=== PATIENT | male | born 1965 | race Caucasian/White ===

== ENCOUNTER 2018-01-30 15:26 | Emergency (ER) | END 2018-01-30 19:43 | disposition home or self-care (01) ==

== ENCOUNTER 2019-05-09 11:22 | Day surgery (SDC) | payer OTHER ==
[2019-05-09] VITALS (10 sets, daily range): BP systolic 124–160; BP diastolic 91–100; PULSE 72–85; RESP 13–20; Ht 165.1 cm; Wt 68.4 kg
[~2019-05-09] VITALS: Ht 165.1 cm; Wt 68.4 kg
--- NOTE | 2019-05-09 08:41 | HPN ---
Date/Time of Note Date/Time of Note DATE: 05/09/19 TIME: 08:40 Interval H&P Admission Note Pt. seen H&P reviewed: No system changes LUTHER JOLLEY MD May 09, 2019 08:41
[~2019-05-09 11:22] MED LIST: CEFAZOLIN 2 GM/50 ML (PMX) 50 ML IVPB ONE; CIPR500T4 PO; ESOM20CA PO; HYDR-3980 PO
[2019-05-09] MEDS ORDERED: BUPIVACAINE 0.5% (SDV) 30 ML INJ ONE (12:21)
--- NOTE | 2019-05-09 12:44 | PREAC ---
Date/Time of Note Date/Time of Note DATE: 05/09/19 TIME: 12:44 Anesthesia Eval and Record Evaluation Time Pre-Procedure Interview DATE: 05/09/19 TIME: 12:44 Age 54 Sex male NPO: 8 hrs Preoperative diagnosis phimosis Planned procedure circumcision Past Medical History Past Medical History: Includes Pulm: Smoking Hx GI: GERD Surgery & Anesthesia Issues No known issue Meds Anticoagulation: No Beta Fela within 24 hr: No Reason Beta Fela not given: Pt. not on B-Fela Discontinued Reported Medications Esomeprazole Mag Trihydrate (Nexium) 20 Mg Capsule.dr, 20 MG PO DAILY, #30 CAP 01/30/18 Discontinued Scripts Hydrocodone/Acetaminophen ([place] 10-325 Tablet) 1 Each Tablet, 1 TAB PO Q6H PRN for PAIN, #12 TAB Prov:ESTRELLA MARCELINO MD 01/30/18 Ciprofloxacin Hcl* (Ciprofloxacin Hcl*) 500 Mg Tablet, 500 MG PO BID for 7 Days, TAB Prov:ESTRELLA MARCELINO MD 01/30/18 Meds reviewed: Yes Allergies Coded Allergies: No Known Allergy (Unverified , 05/09/19) Allergies Reviewed: Yes Labs/Studies Labs Reviewed: Reviewed by anesthesiologist test: N/A Studies: ECG Pre-procedure Exam Last vitals Vital Signs Date Temp Pulse Resp B/P (MAP) Pulse Ox O2 O2 Flow FiO2 Time Delivery Rate 05/09/19 98.2 85 16 124/91 99 Room Air 12:08 (102) Airway: Adequate mouth opening, Adequate thyromental dist Mallampati: Mallampati II Teeth: Abnormal Lung: Normal Heart: Normal ASA Physical Status ASA physical status: 2 Emergency: None Planned Anesthetic General/MAC: ETT Pre-operative Attestations Prior to commencing anesthesia and surgery, the patient was re-evaluated, there was verification of: *The patient's identity *The results of appropriate recent lab work and preoperative vital signs *The above evaluation not changing prior to induction *Anesthetic plan, risk benefits, alternative and complications discussed with patient/family; questions answered; patient/family understands, accepts and wishes to proceed. MISAEL FRANKLIN May 09, 2019 12:44
[2019-05-09] MEDS ORDERED: PROPOFOL 20 ML ONE (12:47)
[2019-05-09] MEDS ORDERED: SUCCINYLCHOLINE CHLORIDE 100 MG/5 ML SYG IV ONE (12:47)
[2019-05-09] MEDS ORDERED: LIDOCAINE 100 MG SYRINGE ONE (12:47)
[2019-05-09] MEDS ORDERED: CEFAZOLIN 1 GM INJ ONE (12:47)
[2019-05-09] MEDS ORDERED: ROCURONIUM 50 MG INJ ONE (12:47)
[2019-05-09] MEDS ORDERED: GLYCOPYRROLATE 0.4 MG INJ ONE (12:47)
[2019-05-09] MEDS ORDERED: METOCLOPRAMIDE 10 MG INJ ONE (12:48)
[2019-05-09] MEDS ORDERED: ONDANSETRON 4 MG INJ ONE (12:48)
[2019-05-09] MEDS ORDERED: FAMOTIDINE 20 MG INJ ONE (12:48)
[2019-05-09] MEDS ORDERED: FENTAnyl 50 MCG/ML VIAL ONE ×2 (12:48→13:36)
[2019-05-09] MEDS ORDERED: FENTAnyl 50 MCG/ML VIAL IV PRN ×3 (13:00)
[2019-05-09] MEDS ORDERED: HYDROmorphONE 1 MG/5 ML IV SYRINGE IV PRN ×3 (13:00)
[2019-05-09] MEDS ORDERED: ALBUTEROL 0.083% (NEB) 2.5 MG/3 ML AMP HHN PRN (13:00)
[2019-05-09] MEDS ORDERED: ONDANSETRON 4 MG INJ IV PRN (13:00)
[2019-05-09] MEDS ORDERED: MEPERIDINE 25 MG INJ IV PRN (13:00)
[2019-05-09] MEDS ORDERED: DIPHENHYDRAMINE 50 MG INJ IV PRN (13:00)
[2019-05-09] MEDS ORDERED: METOCLOPRAMIDE 10 MG INJ IV PRN (13:00)
[2019-05-09] MEDS ORDERED: SUGAMMADEX SODIUM 200 MG/2 ML VIAL IV ONE (13:41)
--- NOTE | 2019-05-09 13:58 | OPR ---
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 Time out was done. The patient was identified by his name, date and the procedure. Patient was given 2 g of Ancef IV at the start of the procedure. The genital area was then prepped and draped in usual sterile manner. A dorsal slit was first done so the foreskin can be retracted. The penis was then painted again with Betadine solution. The foreskin at the level of the thornton was marked then incised. The foreskin was then retracted and another incision was made one centimeter proximal to the thornton. The skin between the 2 incisions was removed. All the bleeders were electrocoagulated and good hemostasis was obtained. The subcutaneous tissue was approximated with 3-0 Vicryl interrupted sutures at the 9,12, 3 and 6 o'clock position. The incision was then closed with 3-0 Vicryl interrupted sutures. Then the patient was injected with half percent Marcaine around the base of the penis for local anesthesia. The incision was then covered was a Vaseline gauze and a Lucretia. Patient was transferred to the recovery room in stable and satisfactory condition. LUTHER JOLLEY MD May 09, 2019 13:58
[2019-05-09] MEDS ORDERED: HYDROCODONE/APAP (5/325) TAB PO PRN (14:00)
--- NOTE | 2019-05-10 13:31 | PAC ---
Date/Time of Note Date/Time of Note DATE: 05/10/19 TIME: 13:31 Post-Anesthesia Notes Post-Anesthesia Note Last documented vital signs Vital Signs Date Temp Pulse Resp B/P (MAP) Pulse Ox O2 O2 Flow FiO2 Time Delivery Rate 05/09/19 97.9 76 16 160/91 98 Room Air 14:33 (114) Activity: WNL Respiratory function: WNL Cardiovascular function: WNL Mental status: Baseline Pain reasonably controlled: Yes Hydration appropriate: Yes Nausea/Vomiting absent: Yes MISAEL FRANKLIN May 10, 2019 13:31
== END 2019-05-09 15:26 | disposition home or self-care (01) ==
LOC: SDS 11:22
PROVIDERS: ATTEND Urology
DX: N47.1 Phimosis (principal); N48.1 Balanitis; K21.9 Gastro-esophageal reflux disease without esophagitis; Z87.891 Personal history of nicotine dependence
CPT/HCPCS: 54161; 88304; J0690; J2001; J2405; J2765; J3010; Z7512; Z7610